=== PATIENT | female | born 1990 | race Caucasian/White ===

== ENCOUNTER 2019-03-10 13:01 | Emergency (ER) | payer OTHER ==
[~2019-03-10] VITALS: Ht 167.6 cm; Wt 85.7 kg
[2019-03-10 13:16] VITALS: BP 123/77
--- NOTE | 2019-03-10 13:21 | NUR ---
PT TO XRAY VIA WHEELCHAIR
[2019-03-10] MEDS ORDERED: ACETAMINOPHEN EXTRA STRENGTH 500 MG TAB PO ONE (14:10)
--- NOTE | 2019-03-10 14:15 | NUR ---
29YO F C/O RIGHT HAND PAIN AND SWELLING X 1 DAY. DESCRIBES PAIN 8/10, SHARP, WITH NUMBNESS AND TINGLING OF R HAND. PT ADMITS TO TRAUMA OF R HAND AT WORK. UPON EXAMINATION, CR >4 SECS, ABLE TO MOVE R HAND WITH LIMITATION. VSS; PATIENT POSITIONED FOR COMFORT; HOB ELEVATED; BEDRAILS UP X2; BED DOWN. ER MD MADE AWARE OF PT STATUS. KARLA
[2019-03-10 14:32] VITALS: BP 123/77
--- NOTE | 2019-03-10 14:33 | NUR ---
Patient discharged with v/s stable. Written and verbal after care instructions given and explained. Patient alert, oriented and verbalized understanding of instructions. Ambulatory with steady gait. All questions addressed prior to discharge. ID band removed. Patient advised to follow up with PMD. Rx of motrin, acetaminophen given. Patient educated on indication of medication including possible reaction and side effects. Opportunity to ask questions provided and answered.
== END 2019-03-10 14:33 | disposition home or self-care (01) ==
LOC: MED 13:01
DX: S60.211A Contusion of right wrist, initial encounter (principal); S70.01XA Contusion of right hip, initial encounter; W19.XXXA Unspecified fall, initial encounter; Y93.89 Activity, other specified; Y92.89 Other specified places as the place of occurrence of the external cause; Y99.8 Other external cause status
CPT/HCPCS: 73110; 73130; 81025; 99283

== ENCOUNTER 2022-03-28 13:37 | Emergency (ER) | payer OTHER ==
[~2022-03-28] VITALS: Ht 165.1 cm; Wt 93.4 kg
[2022-03-28 13:55] VITALS: BP 113/70
[2022-03-28] MEDS ORDERED: IBUP-2213 PO (14:40)
--- NOTE | 2022-03-28 14:50 | NUR ---
ZACK WRAP X 1 APPLIED TO R ANKLE. + CMS. PT GIVEN CRUTCHES AND RETURNED SAFE DEMONSTRATION.
--- NOTE | 2022-03-28 14:59 | NUR ---
Patient discharged with v/s stable. Written and verbal after care instructions FOR ANKLE SPRAIN given and explained. Patient alert, oriented and verbalized understanding of instructions. Ambulatory USING CRUTCHES . All questions addressed prior to discharge. ID band removed. Patient advised to follow up with PMD. Rx of IBUPROFEN given. Opportunity to ask questions provided and answered. WORK NOTE PROVIDED
--- NOTE | 2022-03-28 15:00 | NUR ---
The patient's care was reviewed and supervised by Rubén Hagen RN.
== END 2022-03-28 14:59 | disposition home or self-care (01) ==
LOC: MED 13:37
DX: S93.402A Sprain of unspecified ligament of left ankle, initial encounter (principal); S93.401A Sprain of unspecified ligament of right ankle, initial encounter; X58.XXXA Exposure to other specified factors, initial encounter; Y93.89 Activity, other specified; Y92.89 Other specified places as the place of occurrence of the external cause; Y99.8 Other external cause status
CPT/HCPCS: 73610; 99283